=== PATIENT | female | born 1950 | race Caucasian/White ===

== ENCOUNTER 2016-08-08 13:10 | Inpatient (IN) | payer MEDICARE, OTHER ==
--- NOTE | ~2016-08-08 | CN ---
Consultation Report [facility] [address] [facility] [place]. [address] NAME: JOAN MILLER : 54 STATUS : ADM IN [facility]#: [id number] AGE: 66 ADM/REG DATE : 08/08/16 MR#: [id number] REPORT SERV DATE: 08/10/16 DICTATED BY: DATE: REPORT STATUS : Draft TRANSCRIBED BY: MODL DATE: 08/09/16 CONSULTATION DATE OF CONSULTATION: 08/09/2016 CHIEF COMPLAINT/REASON FOR CONSULTATION: Abnormal cardiac stress test. PRIMARY FERMENTER: Rigo Stephenson M.D. HISTORY OF PRESENT ILLNESS: Mrs. Miller is a 66-year-old female with a known history of end stage renal disease, who is also being worked up for chest pain and shortness of breath on an outpatient basis. She had a PET myocardial perfusion stress test on 07/27/2016, which was an intermediate risk stress and demonstrated apical and lateral ischemia. The patient was scheduled for an outpatient cardiac catheterization on 08/10/2016. In the interim, the patient fell and had left hip pain, so she came to the hospital and was found not to have a hip fracture, but she continued to be quite dyspneic and was found to have a CO2 as high as 77 and she was placed on BiPAP and had additional dialysis with 1.7 L fluid removal on top of the 4.5 L she had already had during the day. She is resting comfortably on a nasal cannula. The patient refuses to use BiPAP, she states that it is like torture for her. PAST MEDICAL HISTORY: 1. Chronic left bundle-branch block. 2. End-stage renal disease, on hemodialysis, dialyzing three times per week. 3. Chronic shortness of breath. 4. Chronic hypoxic respiratory failure. 5. Hypertension. 6. Hyperlipidemia. 7. Diabetes mellitus. 8. Obstructive sleep apnea. 9. Morbid obesity. SOCIAL HISTORY: The patient is a former smoker. She does not use alcohol or extracurricular drugs. FAMILY HISTORY: Noncontributory. ALLERGIES: 1. OXYCODONE. 2. SULFA. MEDICATIONS: Current inpatient medications include: 1. Aspirin 162 mg p.o. daily. 2. Calcium carbonate. 3. Lasix 80 mg on nondialysis days. 4. Sensipar. Consultation Report [facility] [address] [place]. [address] NAME: JOAN MILLER : 54 STATUS : ADM IN PAT#: [id number] AGE: 66 ADM/REG DATE : 08/08/16 MR#: [id number] REPORT SERV DATE: 08/10/16 DICTATED BY: DATE: REPORT STATUS : Draft TRANSCRIBED BY: MODL DATE: 08/09/16 5. Pepcid. 6. Neurontin. 7. Heparin for DVT prophylaxis. 8. Novolin. 9. Solu-Medrol. 10.Nephrocaps. 11.Protonix. 12.Renvela. 13.Sodium bicarbonate. REVIEW OF SYSTEMS: All systems were reviewed and are negative, except for as dictated in the HPI. PHYSICAL EXAMINATION: VITAL SIGNS: The patient is afebrile with a temperature of 98.2, blood pressure is 162/52 on norepinephrine 11 mcg/kg, pulse ranged between 94 and 100 beats per minute, respirations 17, oxygen saturations range between 98% on 5 L nasal cannula to the high 80s when the patient is asleep. GENERAL: Mrs. Miller is an ill-appearing 66-year-old female. She is resting comfortably, in no distress. NECK: No jugular venous distention. I could not appreciate carotid bruits. HEART: Tachycardic. Normal S1 and S2. I could not appreciate murmurs, rubs, or gallops. LUNGS: There were inspiratory and expiratory crackles in all lung baig. ABDOMEN: Obese and nontender. I could not appreciate edema in the abdominal pannus. EXTREMITIES: I could not appreciate femoral bruits or palpate femoral pulses due to the patient's body habitus. The right wrist has dual blood supply via Tal test. There is no lower extremity edema. NEUROLOGIC: The patient awakens easily. I could not appreciate focal neurologic deficits. DATA: Procalcitonin 0.47. Sodium 142, potassium 5, BUN 18, creatinine 3.5. BNP is 529. AST 36, ALT 24. ABG showed a pH of 7.25, a pCO2 of 62, a PO2 of 70. Hemoglobin 11.4, hematocrit 38.3, platelet count 224. A chest x-ray performed demonstrated moderate-to- severe pulmonary venous hypertension. EKG on admission demonstrated a left bundle-branch block. The patient had sinus tachycardia. The patient has a known left bundle-branch block. IMPRESSION REPORT AND PLAN: 1. Acute on chronic respiratory failure. 2. End-stage renal disease, on hemodialysis. 3. Abnormal PET stress test with apical and lateral ischemia. 4. Chronic left bundle-branch block. 5. Hypertension. 6. Hyperlipidemia. 7. Diabetes mellitus. 8. Obstructive sleep apnea. Consultation Report [address] [place]. [address] NAME: JOAN MILLER : 54 STATUS : ADM IN [facility]#: [id number] AGE: 66 ADM/REG DATE : 08/08/16 MR#: [id number] REPORT SERV DATE: 08/10/16 DICTATED BY: DATE: REPORT STATUS : Draft TRANSCRIBED BY: MODL DATE: 08/09/16 9. Morbid obesity. RECOMMENDATIONS: 1. Would check lipid panel. 2. Add high-intensity statin. 3. Add back the patient's beta-juan carlos. 4. Would wean norepinephrine. 5. Would recommend cardiac catheterization to evaluate for obstructive coronary artery disease contributing to her symptoms when her respiratory status stabilizes. It has been my pleasure to participate in her care. [facility]/MODL Juanita Steiner M.D. / [id number] CC: MD Carlos Connolly M.D. Van Stephen Monroe Jr., M.D.
--- NOTE | ~2016-08-08 | DS ---
Discharge Summary [facility] [address] [place]. [address] NAME: JOAN BURNS : 54 STATUS : DIS IN PAT#: [id number] AGE: 66 ADM/REG DATE : 08/08/16 MR#: [id number] REPORT SERV DATE: 09/01/16 DICTATED BY: REY RENO DATE: 08/31/16 REPORT STATUS : Draft TRANSCRIBED BY: ESTEVAN DATE: 08/31/16 Data Collection from hospitalization DISCHARGE DIAGNOSES: 1. Status post acute/chronic respiratory failure. 2. Unstable angina status post drug-eluting stent-ostial/proximal obtuse marginal. 3. Ejection fraction 40%. 4. End-stage renal disease. 5. Hypotension. 6. Type 2 diabetes mellitus. 7. Chronic left bundle-branch block. 8. Hypertension. 9. Obstructive sleep apnea. 10.Morbid obesity. 11.Former smoker. CONSULTATIONS: Dr. Jomar Adkins. Dr. Juanita Steiner. Dr. Iván Flaherty. PROCEDURES PERFORMED: 1. Cardiac catheterization and percutaneous coronary intervention, 08/11/2016. 2. CT scan of the pelvis without contrast, 08/14/2016. DISCHARGE MEDICATIONS: Aspirin 162 mg daily; Lipitor 40 mg at bedtime; Tums 2000 mg with meals; Coreg 3.125 mg twice a day; Sensipar 30 mg at bedtime; Plavix 75 mg daily; Neurontin 100 mg at bedtime; heparin 5000 units subcutaneously every eight hours; NovoLog injection insulin as instructed; Novolin 70/30 20 units subcutaneously before breakfast and supper; Dialyvite one tablet daily; Protonix 40 mg before breakfast; sodium bicarbonate 650 mg twice a day; Renvela 3200 mg with meals and 1600 mg with snacks; ProAmatine 10 mg on Tuesdays and as instructed and 5 mg on Wednesday, Wednesday, Wednesday, and Wednesday as instructed; ProAmatine 5 mg on Tuesdays, , and Saturdays as instructed; Brovana 15 mcg via inhaler twice a day as instructed; Pulmicort 1 mg via inhaler twice a day; DuoNeb 3 mL via inhaler every four hours while awake; Tylenol 650 mg orally or rectally as instructed; Mylanta 30 mL every four hours as needed; Norvasc 5 mg as needed; Tessalon 100 mg three times a day as needed; WelChol 1875 mg as needed; Lomotil 2.5 mg three times a day as needed; glucose tablets three as instructed; nitroglycerin 0.4 mg sublingually every five minutes as needed and as instructed; Zofran 4 mg orally or sublingually every four hours as needed; MiraLAX powder one packet daily as needed; Renvela 1600 mg as needed, Ultram 50 mg twice a day as needed, DuoNeb 3 mL via inhaler every four hours as needed, Phenergan 25 mg every four hours as needed, Sensipar 30 mg at bedtime. CONDITION AT DISCHARGE: Stable. DISPOSITION: The patient was discharged to [facility] on an 1800-calorie cardiac diet with activities as instructed. HOSPITAL COURSE: This is a 66-year-old female, who undergoes hemodialysis for end-stage renal disease on Tuesdays, , and Saturdays. She dialyzes through a left upper extremity AV fistula and dialyzed on the day of this admission. She has a history of Discharge Summary [address] [address] NAME: JOAN BURNS : 54 STATUS : DIS IN PAT#: [id number] AGE: 66 ADM/REG DATE : 08/08/16 MR#: [id number] REPORT SERV DATE: 09/01/16 DICTATED BY: REY RENO DATE: 08/31/16 REPORT STATUS : Draft TRANSCRIBED BY: ESTEVAN DATE: 08/31/16 possible COPD and obstructive sleep apnea with intermittent use of CPAP. She is morbidly obese. She has diabetes and hypertension. She was in the emergency room overnight after a fall and left hip pain. A CT scan of the hip did not show any fracture of the hip and she was released to dialysis. After dialysis, she continued to be dyspneic and returned to the emergency room, where she had hypercapnic respiratory distress with pCO2 as high as 77. She was placed on BiPAP and admitted to the ICU. She did have additional dialysis that evening at my request with an ultrafiltration on admission of 1.7 L on top of 4.5 L from earlier on the day of this admission. Her breathing was "never good." She was not having chest pain, but had been ill over the past week with a nonproductive cough, dyspnea, sore throat, and a runny nose. She was admitted to the hospital at this time for further evaluation and treatment. Upon admission, chest x-ray showed increased pulmonary edema. The patient was placed in the ICU on BiPAP support. Solu-Medrol was started. She was dialyzed for additional ultrafiltration. She had a mildly elevated procalcitonin and very mildly elevated troponin without chest pain. We were not suspicious for acute coronary syndrome at this time. Repeat troponin was going to be obtained. Her antihypertensives were held as well as Lopid. A PICC line was placed. She was seen by Dr. Jomar Adkins regarding hypercapnic respiratory insufficiency, on BiPAP. The patient is not on bronchodilator medication nor she on supplemental oxygen at home. She does have a history of obstructive sleep apnea of unclear severity. Thyroid functions were going to be obtained. Cortisol level was going to be checked. Sliding scale insulin was ordered. Protonix was going to be given for history of reflux. DuoNeb would be given as well as Pulmicort and Brovana. It was felt that the patient should undergo cardiac catheterization. Cortisol level was going to be checked. Sliding scale insulin was started. Following day, she was seen by Dr. Juanita Steiner regarding abnormal cardiac stress test. She had a past myocardial perfusion stress test on 07/27/2016, which revealed intermediate risk stress and demonstrated apical and lateral ischemia. The patient had a fall and had left hip pain. She was found not to have a hip fracture. She is being quite dyspneic. She was resting comfortably at this time on nasal cannula. She refused to use BiPAP. She said it was like torture for her. EKG on admission had demonstrated left bundle-branch block. The patient had sinus tachycardia. She does have a known left bundle-branch block. Lipid panel was going to be checked. We were going to add high-intensity statin. We were also going to add back the patient's beta- juan carlos. Norepinephrine was going to be weaned. On the , she seemed to be feeling better. Her dyspnea had decreased. She had no chest pain. She remained in a normal sinus rhythm. On 08/11/2016, she had no chest pain. Her dyspnea continued to decrease. Hemodialysis therapy was performed. She was taken to the cardiac laboratory scientist, where she underwent the above mentioned procedure by Dr. Alfredo Jewell. She tolerated this well and there were no complications. Next day, telemetry revealed no arrhythmia. She did complain of back and hip pain. She said this was what bothers her most. Aspirin was continued at a decreased dose. On the , she was seen by Dr. Iván Flaherty regarding left hip pain. Her current white count was 11,000. She was lethargic, but arousable. She denies any history of chronic hip or low back pain. She said the pain was mostly in the region of her sciatic and lateral hip. A CT scan was going to be repeated to rule out the possibility of development of significant hematoma or iliopsoas hematoma, which would explain the Discharge Summary [address] [address] NAME: JOAN BURNS : 54 STATUS : DIS IN PAT#: [id number] AGE: 66 ADM/REG DATE : 08/08/16 MR#: [id number] REPORT SERV DATE: 09/01/16 DICTATED BY: REY RENO DATE: 08/31/16 REPORT STATUS : Draft TRANSCRIBED BY: MODL DATE: 08/31/16 continuation of her pain. There is no indication for hip aspiration at this point. She had no clinical evidence of intrapelvic abscess. CT scan of the pelvis without contrast was performed. On 08/15/2016, she was evaluated by Physical Therapy. CT scan of the pelvis without contrast had shown non-distracted greater trochanter fracture of the left hip. On 08/16/2016, she seemed to be breathing better. Midodrine had been increased. Hemodialysis therapy continued. On 08/18/2016, her shortness of breath was better. She still had a cough. Echocardiogram was performed. Over the next couple of days, she continued to do well. She was in a normal sinus rhythm. Discharge planning was performed. She still complained of hip pain. On 08/20/2016, her cough had improved. She was alert and cooperative. Discharge instructions were given. Due to her improved and stable condition, she was discharged to [facility] with the above-stated instructions. Information collected by: Palmira Foy I submit the above information as my discharge summary. TG/MODLina Rey Reno M.D. / [id number] CC: MD Carlos Connolly M.D. William Hartley, M.D. [facility] Rowena Steiner M.D.
--- NOTE | ~2016-08-08 | CN ---
Consultation Report [facility] [address] [place]. [address] NAME: JOAN MILLER : 54 STATUS : ADM IN PAT#: [id number] AGE: 66 ADM/REG DATE : 08/08/16 MR#: [id number] REPORT SERV DATE: 08/13/16 DICTATED BY: IVÁN FLAHERTY DATE: 08/13/16 REPORT STATUS : Draft TRANSCRIBED BY: MODL DATE: 08/13/16 CONSULTATION DATE OF CONSULTATION: 08/13/2016 REASON FOR CONSULTATION: Left hip pain. HISTORY OF PRESENT ILLNESS: Ms Miller is a 66-year-old female, who fell last Wednesday. She was evaluated at [facility] for a cardiac workup as well as evaluation of her left hip pain. She had x-rays and CT scan of the left hip which were negative for fracture. She has gone on to have completion of her cardiac workup and stet placement. I have now been asked to see her for further evaluation of her left hip. She continues to complain of severe left hip pain with any range of motion. She has not been ambulatory since the time of the fall. She has had no recent fever or chills. Her current white count is 11,000. The patient is lethargic, but arousable. She denies any history of chronic hip for low back pain. She locates her pain mostly to the region of her left sciatic and lateral hip. PHYSICAL EXAMINATION: GENERAL: I could not elicit any reproduction of her pain with AP or lateral compression of her pelvis. She complains of severe pain with any attempted passive hip range of motion. She refuses active hip range of motion. She has no pain with forceful axial loading of her left lower extremity. I could not elicit any significant thigh tenderness. There is no palpable fluctuance or visible hematoma. She has normal sciatic nerve sensory motor function. I could not palpate pedal pulses. IMAGING: X-rays and CT scan of her left hip from 08/08/2016 show no evidence of fracture or other hip abnormality. IMPRESSION: Left hip contusion. I recommend Ms Miller to have her CT scan repeated to rule out the possibility of development of a significant hematoma or iliopsoas hematoma which would explain the continuation of her pain. I did not see any indication for hip aspiration at this point. She has no clinical evidence of intrapelvic abscess. We will follow up after the repeat CT is completed. Thanks for the consultation. YORDAN/ESTEVAN Iván Consultation Report [place] [place] [address] [place]. [address] NAME: JOAN MILLER : 54 STATUS : ADM IN PAT#: [id number] AGE: 66 ADM/REG DATE : 08/08/16 MR#: [id number] REPORT SERV DATE: 08/13/16 DICTATED BY: IVÁN FLAHERTY DATE: 08/13/16 REPORT STATUS : Draft TRANSCRIBED BY: ESTEVAN DATE: 08/13/16 Matilde Flaherty / [id number] CC: Juan Jose Kim MD
--- NOTE | ~2016-08-08 | CN ---
Consultation Report [facility] [address] [place]. [address] NAME: JOAN MILLER : 54 STATUS : ADM IN PAT#: [id number] AGE: 66 ADM/REG DATE : 08/08/16 MR#: [id number] REPORT SERV DATE: 08/08/16 DICTATED BY: SHAWNA ADKINS IV DATE: 08/08/16 REPORT STATUS : Draft TRANSCRIBED BY: ESTEVAN DATE: 08/08/16 CRITICAL CARE CONSULT NOTE DATE OF CONSULTATION: 08/08/2016 REASON FOR REQUEST: Hypercapnic respiratory insufficiency, on BiPAP. HISTORY OF PRESENT ILLNESS: History is obtained from the records and from the patient. Ms. Miller is a 66-year-old female with a history of hypertension, diabetes mellitus, morbid obesity, obstructive sleep apnea, noncompliant with CPAP, elevated cholesterol, end- stage renal disease, on dialysis, past tobacco dependency, and possible coronary artery disease, scheduled for cardiac catheterization on Wednesday, who presents with increased shortness of breath, wheezing, and hypoxemia. The patient was showering last night and fell injuring her left hip. She had a radiograph obtained which failed to demonstrate a fracture. She continued to have increased pain in the region but additionally had increased shortness of breath. She said this has happened over the last several days associated with increased wheezing. She had ankle edema, though no swelling of her legs. She had an abbreviated dialysis today and they sent her over to the ER for further evaluation. She was quite hypoxemic on presentation though that has improved with initiation of BiPAP. She was hypercapnic as well. The patient is not on bronchodilator medication nor is she on supplemental oxygen at home. She has intermittent cough without fevers, chills, sweats, hemoptysis, or purulent sputum production. She did have a scratchy throat and no other symptoms of a respiratory infection. The patient has a history of obstructive sleep apnea of unclear severity. She was placed on CPAP which she thinks is a pressure setting of 13, though is noncompliant with CPAP therapy. Her reports snoring, witnessed apneic episodes, and the patient complains of nonrestorative sleep and sedentary hypersomnolence. PULMONARY HISTORY: Remarkable for no history of childhood asthma or known adult obstructive lung disease. She has had pneumonia in the past. She has a [id number] smoking history, having quit 20 years ago. 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 She is reportedly up to date on both seasonal influenza vaccine and Pneumovax. PAST MEDICAL HISTORY: 1. Hypertension. 2. Diabetes mellitus. 3. Morbid obesity. 4. Obstructive sleep apnea, noncompliant with CPAP. 5. Elevated cholesterol. 6. End-stage renal disease, on dialysis. 7. Past tobacco dependency. 8. Questionable coronary artery disease. Consultation Report [facility] [address] [place]. [address] NAME: JOAN MILLER : 54 STATUS : ADM IN PAT#: [id number] AGE: 66 ADM/REG DATE : 08/08/16 MR#: [id number] REPORT SERV DATE: 08/08/16 DICTATED BY: SHAWNA ADKINS IV DATE: 08/08/16 REPORT STATUS : Draft TRANSCRIBED BY: ESTEVAN DATE: 08/08/16 SURGERIES: 1. Vascular graft to her left arm for dialysis. 2. on two occasions. 3. Laparoscopic cholecystectomy. 4. Bilateral cataract surgery. ALLERGIES: LISTED ARE SULFA DRUGS WHICH HAPPENED IN CHILDHOOD. SHE IS INTOLERANT OF BOTH HYDRO AND OXYCODONE. OUTPATIENT MEDICATIONS: Include Norvasc 10 mg daily, Tums 2000 mg with meals, Sensipar 30 mg at bedtime, Welchol 1875 mg p.r.n. loose stools, Lomotil p.r.n., Cardura 4 mg at bedtime, Lasix 80 mg twice a day, Neurontin 100 mg at bedtime, Lopid 600 mg daily, hydralazine 50 mg q.8 h. p.r.n., 70/30 insulin 36 units twice a day, Prinivil 20 mg daily, Lopressor 25 mg twice a day, Zofran p.r.n., Phenergan p.r.n., Zantac 300 mg at bedtime, Renvela 1600 mg with snacks, and bicarb daily. SOCIAL HISTORY: Remarkable for the previous tobacco use as above. There is no alcohol or illicit drug use. She is and has three children, one of whom has passed from leukemia. FAMILY HISTORY: Remarkable for a father with COPD, mother with diabetes and hypertension. REVIEW OF SYSTEMS: 14-systems reviewed. Pertinent positives noted above. PHYSICAL EXAMINATION: GENERAL: This is a morbidly obese, elderly female, on BiPAP, currently in no distress. VITAL SIGNS: Saturations are 100% on 50% FiO2, respiratory rate is 18, temperature 98.2, pulse is 73, and blood pressure is 91/44. HEENT: The patient is normocephalic, atraumatic. Extraocular movements are intact. Pupils react to light. Sclerae and conjunctivae normal. She has a BiPAP mask in place. She has multiple missing teeth with gingival disease and a Mallampati 4 airway with narrowing of the posterior pharyngeal space. NECK: Short, it is supple without any palpable lymphadenopathy or thyromegaly. CHEST: The patient has markedly decreased breath sounds symmetrically. There are some bibasilar inspiratory crackles. There is a prolonged expiratory phase with expiratory wheezes. CARDIOVASCULAR: Jugular venous pulsations are difficult to elicit secondary to body habitus. She has 1+ carotid upstrokes. No obvious bruit. She has a distant regular S1, S2 with a 2/6 systolic murmur at the right upper sternal border. No clear S3 is noted. Peripheral pulses are diminished. ABDOMEN: Morbidly obese. Soft. There are hypoactive bowel sounds. There is no palpable hepatosplenomegaly or masses. Surgical scars are noted. EXTREMITIES: Demonstrate tenderness over the left hip with no discrete abnormality. She Consultation Report [address] [place]. [address] NAME: JOAN MILLER : 54 STATUS : ADM IN [facility]#: [id number] AGE: 66 ADM/REG DATE : 08/08/16 MR#: [id number] REPORT SERV DATE: 08/08/16 DICTATED BY: SHAWNA ADKINS IV DATE: 08/08/16 REPORT STATUS : Draft TRANSCRIBED BY: MODL DATE: 08/08/16 has trace ankle edema. There are some chronic venous stasis changes. There is no cyanosis, clubbing, or palpable cords. NEUROLOGIC: The patient does have some decreased sensation in a stocking distribution. Strength is grossly 5- out of 5 and symmetric. LABORATORY DATA: Chest x-ray demonstrates what appeared to be some perihilar vascular fullness. She has a prominent cardiac silhouette with some minimal basilar atelectasis. Blood cultures are currently pending. Procalcitonin level is 0.57. Most recent blood gas pH of 7.30, pCO2 of 77, pO2 of 140. Lactate is 0.09. CBC: Hemoglobin 10.9, hematocrit 35.3, platelet count 167,000, and white blood cell count is 5.6. She has macrocytic cells. There are no bands and 71 segs. Chemistry: Sodium is 138, potassium 3.8, chloride 98, bicarbonate 28, BUN 15, creatinine 3.55, glucose of 126. Alkaline phosphatase is 227, otherwise, unremarkable. ASSESSMENT AND PLAN: 1. Respiratory. The patient likely has a component of chronic obstructive pulmonary disease exacerbation. Solu-Medrol will be given 40 mg twice a day, nebulizer will be given with DuoNeb q.4 h. while awake and q.4 h. as needed. Pulmicort 1 mg and Brovana unit dose will be given twice a day. Oxygen titration to maintain saturation in the 90% to 94% range. Chest x-ray will be obtained tomorrow as well as a blood gas. 2. Cardiovascular. Troponin level will be added to blood in the labs, repeated in 8 hours, and tomorrow morning. Aspirin will be given 325 mg as a single dose and 162 mg daily. Heparin if she has additional pain. EKG will be obtained tomorrow. Plan cardiac catheterization on Wednesday. If the vascular tech wishes to continue Levophed, it will be given as needed for low blood pressure. BNP will be added to blood in the lab. 3. Infectious Disease. Flu swab will be obtained, though not classic symptoms. I see no indication for empiric antibiotics at this time, though will be followed. 4. Endocrinologic. Thyroid functions will be obtained. Cortisol level will be obtained prior to the initiation of Solu-Medrol. Insulin sliding scale has been ordered. 5. Renal. Dialysis per Nephrology. 6. Hematologic. B12 and folate will be obtained with macrocytic parameters. Heparin will be given subcu for deep vein thrombosis prophylaxis. 7. Neurologic. Multivitamin given daily. 8. Gastrointestinal. Head of bed at 30 to 45 degrees. Protonix will be given with a history of reflux. Thank you for consulting us. We will follow the patient with you. NEDA/ESTEVAN Shawna Adkins IV, M.D. Consultation Report [place] [id number] [facility] [address] [place] [address] NAME: JOAN MILLER : 54 STATUS : ADM IN PAT#: [id number] AGE: 66 ADM/REG DATE : 08/08/16 MR#: [id number] REPORT SERV DATE: 08/08/16 DICTATED BY: SHAWNA ADKINS IV DATE: 08/08/16 REPORT STATUS : Draft TRANSCRIBED BY: ESTEVAN DATE: 08/08/16 / [id number] CC: Carlos George M.D.
--- NOTE | ~2016-08-08 | HP ---
History And Physical [place] [id number] [facility] [place]. [address] NAME: JOAN MILLER : 54 STATUS : ADM IN [facility]#: [id number] AGE: 66 ADM/REG DATE : 08/08/16 MR#: [id number] REPORT SERV DATE: 08/08/16 DICTATED BY: KARY MAHMOOD DATE: 08/08/16 REPORT STATUS : Draft TRANSCRIBED BY: ESTEVAN DATE: 08/08/16 DATE OF ADMISSION: 08/08/2016 CHIEF COMPLAINT: Shortness of breath and ESRD. HISTORY OF PRESENT ILLNESS: Mrs. Miller is a 66-year-old, white female, on hemodialysis for ESRD on a Wednesday, , Wednesday schedule at [facility]. She dialyzes through a left upper extremity AV fistula and dialyzed earlier today. She has a past history of possible COPD, obstructive sleep apnea with intermittent use of CPAP, morbid obesity, diabetes, and hypertension, and was in the emergency room overnight after a fall with left hip pain. CT of hip did not show any fracture of the hip and she was released to dialysis. After dialysis, she continued to be dyspneic and returned to the emergency room where she had hypercapnic respiratory distress with a pCO2 as high as 77. She was placed on BiPAP and admitted to the ICU. She did have additional dialysis this evening at my request with an ultrafiltration of admission 1.7 L on top of the 4.5 L from earlier today. Her breathing is "never good." She is not having chest pain, but has been ill over the past week with a nonproductive cough, dyspnea, sore throat, and runny nose. PAST MEDICAL HISTORY: As detailed in the HPI. HOME MEDICATIONS: Include amlodipine 10 mg daily, Dialyvite, Tums, Sensipar 30 mg daily, diazepam as needed, doxazosin 4 mg daily, Lasix 80 mg b.i.d., gabapentin 100 mg at night, gemfibrozil 600 mg daily, hydralazine 50 mg t.i.d., NPH 36 units b.i.d., lisinopril 20 mg daily, metoprolol 25 mg b.i.d., Phenergan as needed, ranitidine 300 mg at night, Sevelamer four tablets with meals, sodium bicarbonate 650 mg b.i.d. ALLERGIES: SHE IS ALLERGIC TO OXYCONTIN, HYDROCODONE, AND SULFA. FAMILY HISTORY: Negative for renal disease. SOCIAL HISTORY: The patient is . She quit smoking 20 years ago. REVIEW OF SYSTEMS: As detailed in the HPI. PHYSICAL EXAMINATION: VITAL SIGNS: Temperature is 99 with pulse of 72, blood pressure 92/53, respirations of 18. GENERAL: She is somewhat anxious white female, in no overt distress. She is speaking in short sentences on BiPAP and communicating appropriately. HEENT: Sclerae anicteric. NECK: She has a thick neck. CARDIOVASCULAR: S1, S2. Regular rate and rhythm without murmurs, rubs, or gallops. LUNGS: Fairly clear to auscultation without wheezes, crackles, or rubs. ABDOMEN: She is morbidly obese. Abdomen is soft and nontender. No definite hepatosplenomegaly. EXTREMITIES: Left upper extremity AV fistula is with an appropriate bruit, and she has some History And Physical [address] [address] NAME: JOAN MILLER : 54 STATUS : ADM IN [facility]#: [id number] AGE: 66 ADM/REG DATE : 08/08/16 MR#: [id number] REPORT SERV DATE: 08/08/16 DICTATED BY: KARY MAHMOOD DATE: 08/08/16 REPORT STATUS : Draft TRANSCRIBED BY: ESTEVAN DATE: 08/08/16 trace peripheral edema. LABORATORY DATA: Her labs include a white count of 5.6, hemoglobin 10.9, platelets are 167. Her procalcitonin is 0.57. Sodium 138, potassium 3.8, chloride 98, bicarb 28, lactate 0.9, BUN 15, creatinine 3.15 with a calcium of 8.2, magnesium 1.8, phosphorus 3.4, albumin 3.1. LFTs within normal limits. Troponin 0.07. Vitamin B12 is 1065 with a folate of 26. TSH 0.5. ABG 7.3/77/140/37 with a chest x-ray showing increased pulmonary edema. ASSESSMENT AND PLAN: 1. Shortness of breath, chronic obstructive pulmonary disease exacerbation. Dr. Adkins consulted the patient now in the ICU, on BiPAP support, and he has started Solu-Medrol. His care is very much appreciated. She does also have BiPAP support, and I have dialyzed her for additional ultrafiltration. She is to have repeat ABG and chest x-ray in the morning. 2. End-stage renal disease, dialyzed twice today and AV fistula has appropriate bruit. 3. Hypotension. She has mildly elevated procalcitonin and a very mildly elevated troponin without chest pain. I am not suspicious for an acute coronary syndrome. The EKG to my read has a sinus rhythm and no ischemic changes, and I would repeat the troponin but would not start heparin drip at this point. I have held all of her antihypertensives as well as her Lopid. PICC line was placed in case any further pressor-type medications were necessary and this should be reasonable for lab draws as well. Left arm is to be preserved for dialysis without any blood pressure checks or draws. 4. Diabetes, on insulin. 5. Obesity. 6. The patient admitted to Nephrology. MAGALY/ESTEVAN Kary Mahmood MD / [id number] CC: MD Carlos Connolly M.D.
[~2016-08-08 13:10] MED LIST: ALKA SELTZER PO; ANUSOL HC SUPP1 SUPP PR; APRES10B PO; APRES50 PO; ARANESP25 IV; ASA5GR PO; CALCIUM CARBONATE; CALTRAT600 PO; CARDU4 PO; CARDURA1 MG PO; CAT1 PO; CATAPRES3 TOP; DIALYVITE PO; DIALYVITE800 MG PO; DILT-XR240 MG PO; DSS; FERRLECIT IV; FLAG500TAB PO; FOLIC PO; HECTOROL PO; HUMULIN SC; INSNOV7030 SC; IRON325 MG PO; L40 PO; L80 PO; LEVAQUIN5T PO; LEVEMIR SC; LOM PO; LOP25 PO; LOP50 PO; LOPID6 PO; NEUR100 PO; NORV10 PO; PR25 PO; PRIN10 PO; PRIN20 PO; RENVELA800 MG PO; SENSIPAR30 M1 PO; SEVE800T PO; SODBICAR10 PO; TUMSROLL PO; VITAMIN D1000 UNI1 PO; WELCHOL 625 MG625 MG PO; WELCHOL625 MG PO; ZANTAC150 MG PO; ZANTAC300 MG PO; ZOFRAN ODT4 MG SL
[2016-08-08 13:34] LABS: BE (BASE EXCESS) 3.1 MEQ/L (0 +/- 2.5); HCO3 (ACTUAL BICARBONATE) 30.7 MEQ/L (23-27); INSTRUMENT SERIAL # 8087; PCO2 (CO2 TENSION) 63 MMHG (35-45); PO2 (O2 TENSION) 87 MMHG (79-93); pH 7.31 (7.37-7.43)
[2016-08-08 13:35] LABS: ALLENS TEST Pos; CARBOXYHEMOGLOBIN 1.6 % (0-3); DEVICE NRB; HEMOBLOGIN CONTENT 11.3 G/DL (12-16); METHEMOGLOBIN 0.1 % (0-3); O2 CONTENT 15.1 VOL% (18-24); OPERATOR ID 14947; SAMPLE Arterial
[2016-08-08 13:54] LABS: BASOPHILS 1.8 %; EOSINOPHILS ABSOLUTE 0.17 10/3/uL (0.0-0.53); ER CBC TAT 0 Hrs 13 Mins; HEMATOCRIT 35.3 % (36.0-48.0); HEMOGLOBIN 10.9 g/dL (12.0-16.0); LYMPHOCYTES 18.4 %; LYMPHOCYTES ABSOLUTE 1.03 10/3/uL (0.67-4.30); MEAN CORPUS HGB CONC 30.9 g/dL (32.0-36.0); MEAN CORPUSCULAR HEMOGLOB 32.7 pg (26.0-34.0); MONOCYTES 16.8 %; MONOCYTES ABSOLUTE 0.94 10/3/uL (0.21-1.20); NEUTROPHILS ABSOLUTE 3.24 10/3/uL (2.02-8.40); PLATELET COUNT 167 10/3/uL (150-400); RBC DISTRIBUTION WIDTH 16.7 % (12.0-16.0); RED CELL COUNT 3.33 10/6/uL (4.0-5.6); WHITE BLOOD CELLS 5.6 10/3/uL (4.5-10.5)
[2016-08-08 13:55] LABS: IMMATURE GRANULOCYTES ABSOLUTE 0.11 10/3/uL (0.0-0.11); MANUAL DIFF NO %
[2016-08-08 13:58] LABS: PARTIAL THROMBO TIME 25.3 SEC (22.5-37.2); PROTIME (NOT ORD) 13.5 SEC (12.0-14.5)
[2016-08-08 14:05] LABS: A/G RATIO 0.7 (0.7-1.9); ALBUMIN 3.1 G/DL (3.5-5.0); CALCIUM, SERUM 8.2 MG/DL (8.5-10.4); CHLORIDE, SERUM 98 MMOL/L (96-112); CO2 (CARBON DIOXIDE) 28 MMOL/L (24-34); GLOBULIN 4.2 G/DL (2.5-4.1); POTASSIUM, SERUM 3.8 MMOL/L (3.5-5.3); SGOT(AST) 36 U/L (5-40); SGPT(ALT) 24 U/L (5-65); SODIUM, SERUM 138 MMOL/L (135-148); TOTAL BILIRUBIN 0.5 MG/DL (0-1.2); TOTAL PROTEIN 7.3 G/DL (6.0-8.5)
[2016-08-08 14:08] LABS: ALKALINE PHOSPHATASE 227 U/L (45-117); BUN (BLOOD UREA NITROGEN) 15 MG/DL (6-23); CREATININE 3.15 MG/DL (0.55-1.02); GFR AFRICAN AMERICAN 17 ML/MIN (>=60); GFR NON AFRICAN AMERICAN 15 ML/MIN (>=60); GLUCOSE, SERUM 126 MG/DL (60-99)
[2016-08-08 14:14] LABS: EOSINOPHILS 2 %; EOSINOPHILS ABSOLUTE (CALC) 0.11 10/3/uL (0.0-0.53); ER DIFF TAT 0 Hrs 33 Mins; LYMPHOCYTES 14 %; LYMPHOCYTES ABSOLUTE (CALC) 0.78 10/3/uL (0.67-4.30); MONOCYTES 13 %; MONOCYTES ABSOLUTE (CALC) 0.73 10/3/uL (0.21-1.20); NEUTROPHILS ABSOLUTE (CALC) 3.98 10/3/uL (2.02-8.40); PLATELET ESTIMATE ADQ (ADEQUATE); SEGMENTED NEUTROPHIL (0) 71 %; TOTAL NUCLEATED CELLS 100
[2016-08-08 14:20] LABS: LACTATE 0.9 MMOL/L (0.3-2.4)
[2016-08-08 15:32] LABS: ALLENS TEST Pos; BE (BASE EXCESS) 8.7 MEQ/L (0 +/- 2.5); CARBOXYHEMOGLOBIN 1.1 % (0-3); HCO3 (ACTUAL BICARBONATE) 37.3 MEQ/L (23-27); HEMOBLOGIN CONTENT 11.1 G/DL (12-16); INSTRUMENT SERIAL # 8087; METHEMOGLOBIN 0.3 % (0-3); O2 CONTENT 15.5 VOL% (18-24); PCO2 (CO2 TENSION) 77 MMHG (35-45); PO2 (O2 TENSION) 140 MMHG (79-93); SAMPLE Arterial
[2016-08-08 18:58] LABS: FREE T4 1.07 NG/DL (0.76-1.46)
[2016-08-08 19:19] LABS: PHOSPHORUS, SERUM 3.4 MG/DL (2.5-4.5); TROPONIN I 0.07 NG/ML (<0.05); ULTRASENSITIVE TSH 0.517 MCIU/ML (0.358-3.740)
[2016-08-09 01:15] LABS: INFLUENZA A SCREEN NEGATIVE (NEGATIVE); INFLUENZA B SCREEN NEGATIVE (NEGATIVE)
[2016-08-09 04:05] LABS: ALLENS TEST Pos; BE (BASE EXCESS) -1.3 MEQ/L (0 +/- 2.5); BIPAP 17/7 cm.H2O; CARBOXYHEMOGLOBIN 1.4 % (0-3); HCO3 (ACTUAL BICARBONATE) 26.8 MEQ/L (23-27); HEMOBLOGIN CONTENT 11.5 G/DL (12-16); INSTRUMENT SERIAL # 8083; METHEMOGLOBIN 0.2 % (0-3); O2 CONTENT 14.9 VOL% (18-24); OPERATOR ID 16503; PCO2 (CO2 TENSION) 62 MMHG (35-45); PO2 (O2 TENSION) 70 MMHG (79-93); SAMPLE Arterial; pH 7.25 (7.37-7.43)
[2016-08-09 05:04] LABS: BASOPHILS 0.4 %; BASOPHILS ABSOLUTE 0.03 10/3/uL (0.0-0.16); EOSINOPHILS 0.4 %; EOSINOPHILS ABSOLUTE 0.03 10/3/uL (0.0-0.53); HEMATOCRIT 38.3 % (36.0-48.0); HEMOGLOBIN 11.4 g/dL (12.0-16.0); IMMATURE GRANULOCYTES 2.5 %; IMMATURE GRANULOCYTES ABSOLUTE 0.17 10/3/uL (0.0-0.11); LYMPHOCYTES 6.9 %; LYMPHOCYTES ABSOLUTE 0.47 10/3/uL (0.67-4.30); MEAN CORPUS HGB CONC 29.8 g/dL (32.0-36.0); MEAN CORPUSCULAR HEMOGLOB 32.1 pg (26.0-34.0); MEAN CORPUSCULAR VOLUME 107.9 fL (80-100); MEAN PLATELET VOLUME 11.2 fL (9.2-13.0); MONOCYTES 4.2 %; MONOCYTES ABSOLUTE 0.29 10/3/uL (0.21-1.20); NEUTROPHILS 85.6 %; NEUTROPHILS ABSOLUTE 5.86 10/3/uL (2.02-8.40); RBC DISTRIBUTION WIDTH 16.8 % (12.0-16.0); RED CELL COUNT 3.55 10/6/uL (4.0-5.6); WHITE BLOOD CELLS 6.9 10/3/uL (4.5-10.5)
[2016-08-09 05:06] LABS: MANUAL DIFF NO %; PLATELET COUNT 224 10/3/uL (150-400)
[2016-08-09 05:21] LABS: BUN (BLOOD UREA NITROGEN) 18 MG/DL (6-23); CALCIUM, SERUM 8.6 MG/DL (8.5-10.4); CHLORIDE, SERUM 102 MMOL/L (96-112); GFR AFRICAN AMERICAN 15 ML/MIN (>=60); GFR NON AFRICAN AMERICAN 13 ML/MIN (>=60); SODIUM, SERUM 142 MMOL/L (135-148)
[2016-08-09 05:26] LABS: CO2 (CARBON DIOXIDE) 23 MMOL/L (24-34); GLUCOSE, SERUM 243 MG/DL (60-99); TROPONIN I 0.07 NG/ML (<0.05)
[2016-08-09 06:01] LABS: PROCALCITONIN 0.47 ng/mL (<0.5)
[2016-08-10 04:25] LABS: HEMOGLOBIN 10.6 g/dL (12.0-16.0); MEAN CORPUSCULAR HEMOGLOB 33.1 pg (26.0-34.0); MEAN CORPUSCULAR VOLUME 105.3 fL (80-100); MEAN PLATELET VOLUME 10.4 fL (9.2-13.0); PLATELET COUNT 222 10/3/uL (150-400); RBC DISTRIBUTION WIDTH 16.2 % (12.0-16.0); WHITE BLOOD CELLS 9.5 10/3/uL (4.5-10.5)
[2016-08-10 04:26] LABS: HEMATOCRIT 33.7 % (36.0-48.0); MANUAL DIFF YES %; MEAN CORPUS HGB CONC 31.5 g/dL (32.0-36.0)
[2016-08-10 04:45] LABS: CALCIUM, SERUM 8.8 MG/DL (8.5-10.4); CHLORIDE, SERUM 100 MMOL/L (96-112); CO2 (CARBON DIOXIDE) 26 MMOL/L (24-34); GLUCOSE, SERUM 233 MG/DL (60-99); HDL CHOLESTEROL 61 MG/DL (> 49); POTASSIUM, SERUM 4.6 MMOL/L (3.5-5.3); SODIUM, SERUM 138 MMOL/L (135-148)
[2016-08-10 04:47] LABS: BUN (BLOOD UREA NITROGEN) 44 MG/DL (6-23); CHOL/HDL RATIO(NOT ORDER) 2.8 (0-5); CHOLESTEROL 168 MG/DL (< 200); CREATININE 5.73 MG/DL (0.55-1.02); GFR AFRICAN AMERICAN 8 ML/MIN (>=60); GFR NON AFRICAN AMERICAN 7 ML/MIN (>=60); LDL CHOLESTEROL 80 MG/DL (< 130); NON-HDL CHOLESTEROL 107 MG/DL (< 160); TRIGLYCERIDE 135 MG/DL (< 150)
[2016-08-10 04:50] LABS: SEGMENTED NEUTROPHIL (0) 79 %; TOTAL NUCLEATED CELLS 100
[2016-08-10 04:51] LABS: BAND NEUTROPHILS 7 %; LYMPHOCYTES 7 %; LYMPHOCYTES ABSOLUTE (CALC) 0.67 10/3/uL (0.67-4.30); MACROCYTES 1+ (5-10/OIF) (0-5/OIF); MONOCYTES 7 %; MONOCYTES ABSOLUTE (CALC) 0.67 10/3/uL (0.21-1.20); NEUTROPHILS ABSOLUTE (CALC) 8.17 10/3/uL (2.02-8.40)
[2016-08-10 04:52] LABS: PLATELET ESTIMATE ADQ (ADEQUATE)
[2016-08-11 04:35] LABS: BASOPHILS 0.1 %; BASOPHILS ABSOLUTE 0.01 10/3/uL (0.0-0.16); EOSINOPHILS 0.2 %; EOSINOPHILS ABSOLUTE 0.02 10/3/uL (0.0-0.53); HEMATOCRIT 32.2 % (36.0-48.0); HEMOGLOBIN 10.2 g/dL (12.0-16.0); IMMATURE GRANULOCYTES 2.2 %; IMMATURE GRANULOCYTES ABSOLUTE 0.25 10/3/uL (0.0-0.11); LYMPHOCYTES ABSOLUTE 0.78 10/3/uL (0.67-4.30); MEAN CORPUS HGB CONC 31.7 g/dL (32.0-36.0); MEAN CORPUSCULAR HEMOGLOB 32.5 pg (26.0-34.0); MEAN CORPUSCULAR VOLUME 102.5 fL (80-100); MEAN PLATELET VOLUME 10.9 fL (9.2-13.0); MONOCYTES 8.4 %; MONOCYTES ABSOLUTE 0.94 10/3/uL (0.21-1.20); NEUTROPHILS 82.1 %; NEUTROPHILS ABSOLUTE 9.19 10/3/uL (2.02-8.40); PLATELET COUNT 224 10/3/uL (150-400); RBC DISTRIBUTION WIDTH 16.2 % (12.0-16.0); RED CELL COUNT 3.14 10/6/uL (4.0-5.6); WHITE BLOOD CELLS 11.2 10/3/uL (4.5-10.5)
[2016-08-11 04:37] LABS: MANUAL DIFF NO %
[2016-08-11 04:39] LABS: INTERNATIONAL NORMAL RATI 1.2 UNITS (-); PROTIME (NOT ORD) 14.6 SEC (12.0-14.5)
[2016-08-11 04:49] LABS: ALBUMIN 2.9 G/DL (3.5-5.0); CHLORIDE, SERUM 95 MMOL/L (96-112); CO2 (CARBON DIOXIDE) 27 MMOL/L (24-34); PHOSPHORUS, SERUM 3.4 MG/DL (2.5-4.5); POTASSIUM, SERUM 5.1 MMOL/L (3.5-5.3); SODIUM, SERUM 134 MMOL/L (135-148)
[2016-08-11 04:54] LABS: BUN (BLOOD UREA NITROGEN) 70 MG/DL (6-23); GFR AFRICAN AMERICAN 7 ML/MIN (>=60); GFR NON AFRICAN AMERICAN 6 ML/MIN (>=60); GLUCOSE, SERUM 104 MG/DL (60-99)
[2016-08-12 05:29] LABS: ALBUMIN 2.9 G/DL (3.5-5.0); CALCIUM, SERUM 8.3 MG/DL (8.5-10.4); CHLORIDE, SERUM 102 MMOL/L (96-112); CO2 (CARBON DIOXIDE) 27 MMOL/L (24-34); PHOSPHORUS, SERUM 3.6 MG/DL (2.5-4.5); POTASSIUM, SERUM 4.7 MMOL/L (3.5-5.3); SODIUM, SERUM 137 MMOL/L (135-148)
[2016-08-12 05:30] LABS: BUN (BLOOD UREA NITROGEN) 54 MG/DL (6-23); CREATININE 5.48 MG/DL (0.55-1.02); GFR AFRICAN AMERICAN 9 ML/MIN (>=60); GFR NON AFRICAN AMERICAN 8 ML/MIN (>=60); GLUCOSE, SERUM 83 MG/DL (60-99)
[2016-08-13 06:41] LABS: HEMOGLOBIN 9.7 g/dL (12.0-16.0); MEAN CORPUS HGB CONC 32.3 g/dL (32.0-36.0); MEAN PLATELET VOLUME 10.6 fL (9.2-13.0); PLATELET COUNT 213 10/3/uL (150-400); RBC DISTRIBUTION WIDTH 16.2 % (12.0-16.0); RED CELL COUNT 2.94 10/6/uL (4.0-5.6)
[2016-08-13 06:44] LABS: MANUAL DIFF YES %
[2016-08-13 06:53] LABS: ALBUMIN 2.9 G/DL (3.5-5.0); BUN (BLOOD UREA NITROGEN) 79 MG/DL (6-23); CHLORIDE, SERUM 98 MMOL/L (96-112); CO2 (CARBON DIOXIDE) 23 MMOL/L (24-34); CREATININE 7.04 MG/DL (0.55-1.02); GFR AFRICAN AMERICAN 7 ML/MIN (>=60); GFR NON AFRICAN AMERICAN 6 ML/MIN (>=60); GLUCOSE, SERUM 81 MG/DL (60-99); PHOSPHORUS, SERUM 4.5 MG/DL (2.5-4.5); POTASSIUM, SERUM 5.2 MMOL/L (3.5-5.3); SODIUM, SERUM 135 MMOL/L (135-148)
[2016-08-13 07:48] LABS: BAND NEUTROPHILS 6 %; EOSINOPHILS 1 %; LYMPHOCYTES 23 %; MACROCYTES 1+ (5-10/OIF) (0-5/OIF); MONOCYTES 9 %; PLATELET ESTIMATE ADQ (ADEQUATE); SEGMENTED NEUTROPHIL (0) 61 %; TOTAL NUCLEATED CELLS 100
[2016-08-14 05:37] LABS: HEMATOCRIT 31.3 % (36.0-48.0); MANUAL DIFF YES %; MEAN CORPUS HGB CONC 31.9 g/dL (32.0-36.0); MEAN CORPUSCULAR HEMOGLOB 32.4 pg (26.0-34.0); MEAN CORPUSCULAR VOLUME 101.3 fL (80-100); PLATELET COUNT 229 10/3/uL (150-400); RBC DISTRIBUTION WIDTH 16.3 % (12.0-16.0); RED CELL COUNT 3.09 10/6/uL (4.0-5.6); WHITE BLOOD CELLS 11.3 10/3/uL (4.5-10.5)
[2016-08-14 05:54] LABS: ALBUMIN 2.9 G/DL (3.5-5.0); BUN (BLOOD UREA NITROGEN) 50 MG/DL (6-23); CALCIUM, SERUM 8.4 MG/DL (8.5-10.4); CHLORIDE, SERUM 100 MMOL/L (96-112); CO2 (CARBON DIOXIDE) 26 MMOL/L (24-34); CREATININE 5.26 MG/DL (0.55-1.02); GFR AFRICAN AMERICAN 9 ML/MIN (>=60); GFR NON AFRICAN AMERICAN 8 ML/MIN (>=60); GLUCOSE, SERUM 103 MG/DL (60-99); PHOSPHORUS, SERUM 3.9 MG/DL (2.5-4.5); POTASSIUM, SERUM 5.3 MMOL/L (3.5-5.3); SODIUM, SERUM 140 MMOL/L (135-148)
[2016-08-14 05:55] LABS: BAND NEUTROPHILS 1 %; EOSINOPHILS 4 %; EOSINOPHILS ABSOLUTE (CALC) 0.45 10/3/uL (0.0-0.53); IMMATURE GRANS ABSOLUTE (CALC) 0.11 10/3/uL (0.0-0.11); LYMPHOCYTES 12 %; LYMPHOCYTES ABSOLUTE (CALC) 1.36 10/3/uL (0.67-4.30); METAMYELOCYTES 1 %; MONOCYTES 2 %; NEUTROPHILS ABSOLUTE (CALC) 9.38 10/3/uL (2.02-8.40); SEGMENTED NEUTROPHIL (0) 80 %; TOTAL NUCLEATED CELLS 100
[2016-08-14 05:56] LABS: MACROCYTES 1+ (5-10/OIF) (0-5/OIF); PLATELET ESTIMATE ADQ (ADEQUATE)
[2016-08-15 12:53] LABS: HEMOGLOBIN 9.3 g/dL (12.0-16.0); MEAN CORPUS HGB CONC 32.1 g/dL (32.0-36.0); MEAN CORPUSCULAR HEMOGLOB 32.7 pg (26.0-34.0); MEAN CORPUSCULAR VOLUME 102.1 fL (80-100); MEAN PLATELET VOLUME 10.6 fL (9.2-13.0); PLATELET COUNT 246 10/3/uL (150-400); RBC DISTRIBUTION WIDTH 16.2 % (12.0-16.0); RED CELL COUNT 2.84 10/6/uL (4.0-5.6); WHITE BLOOD CELLS 11.2 10/3/uL (4.5-10.5)
[2016-08-15 12:54] LABS: MANUAL DIFF YES %
[2016-08-15 13:06] LABS: BUN (BLOOD UREA NITROGEN) 66 MG/DL (6-23); CALCIUM, SERUM 7.9 MG/DL (8.5-10.4); CHLORIDE, SERUM 102 MMOL/L (96-112); CO2 (CARBON DIOXIDE) 27 MMOL/L (24-34); CREATININE 5.87 MG/DL (0.55-1.02); GFR AFRICAN AMERICAN 8 ML/MIN (>=60); GFR NON AFRICAN AMERICAN 7 ML/MIN (>=60); GLUCOSE, SERUM 137 MG/DL (60-99); PHOSPHORUS, SERUM 3.9 MG/DL (2.5-4.5); POTASSIUM, SERUM 5.2 MMOL/L (3.5-5.3); SODIUM, SERUM 139 MMOL/L (135-148)
[2016-08-15 13:20] LABS: BAND NEUTROPHILS 7 %; EOSINOPHILS 1 %; EOSINOPHILS ABSOLUTE (CALC) 0.11 10/3/uL (0.0-0.53); IMMATURE GRANS ABSOLUTE (CALC) 0.67 10/3/uL (0.0-0.11); LYMPHOCYTES 6 %; LYMPHOCYTES ABSOLUTE (CALC) 0.67 10/3/uL (0.67-4.30); MACROCYTES 1+ (5-10/OIF) (0-5/OIF); METAMYELOCYTES 5 %; MONOCYTES 9 %; MONOCYTES ABSOLUTE (CALC) 1.01 10/3/uL (0.21-1.20); MYELOCYTES 1 %; NEUTROPHILS ABSOLUTE (CALC) 8.74 10/3/uL (2.02-8.40); PLATELET ESTIMATE ADQ (ADEQUATE); SEGMENTED NEUTROPHIL (0) 71 %; TOTAL NUCLEATED CELLS 100
[2016-08-15 13:21] LABS: POLYCHROMASIA 1+ (2-5/OIF) (0-1/OIF)
[2016-08-16 06:35] LABS: ALBUMIN 2.8 G/DL (3.5-5.0); CALCIUM, SERUM 8.3 MG/DL (8.5-10.4); CHLORIDE, SERUM 104 MMOL/L (96-112); CO2 (CARBON DIOXIDE) 29 MMOL/L (24-34); GFR AFRICAN AMERICAN 10 ML/MIN (>=60); GFR NON AFRICAN AMERICAN 9 ML/MIN (>=60); GLUCOSE, SERUM 131 MG/DL (60-99); PHOSPHORUS, SERUM 3.7 MG/DL (2.5-4.5); POTASSIUM, SERUM 5.4 MMOL/L (3.5-5.3); SODIUM, SERUM 140 MMOL/L (135-148)
[2016-08-16 06:36] LABS: BUN (BLOOD UREA NITROGEN) 49 MG/DL (6-23); CREATININE 4.92 MG/DL (0.55-1.02)
[2016-08-17 05:50] LABS: HEMATOCRIT 29.6 % (36.0-48.0); HEMOGLOBIN 9.5 g/dL (12.0-16.0); MEAN CORPUS HGB CONC 32.1 g/dL (32.0-36.0); MEAN CORPUSCULAR HEMOGLOB 33.1 pg (26.0-34.0); MEAN CORPUSCULAR VOLUME 103.1 fL (80-100); MEAN PLATELET VOLUME 10.8 fL (9.2-13.0); PLATELET COUNT 231 10/3/uL (150-400); RBC DISTRIBUTION WIDTH 16.6 % (12.0-16.0); RED CELL COUNT 2.87 10/6/uL (4.0-5.6); WHITE BLOOD CELLS 11.2 10/3/uL (4.5-10.5)
[2016-08-17 05:51] LABS: ALBUMIN 2.8 G/DL (3.5-5.0); CALCIUM, SERUM 8.3 MG/DL (8.5-10.4); CHLORIDE, SERUM 99 MMOL/L (96-112); CO2 (CARBON DIOXIDE) 27 MMOL/L (24-34); GLUCOSE, SERUM 117 MG/DL (60-99); POTASSIUM, SERUM 5.6 MMOL/L (3.5-5.3); SODIUM, SERUM 136 MMOL/L (135-148)
[2016-08-17 05:54] LABS: BUN (BLOOD UREA NITROGEN) 72 MG/DL (6-23); CREATININE 6.27 MG/DL (0.55-1.02); GFR AFRICAN AMERICAN 7 ML/MIN (>=60); GFR NON AFRICAN AMERICAN 6 ML/MIN (>=60); MANUAL DIFF YES %; PHOSPHORUS, SERUM 4.9 MG/DL (2.5-4.5)
[2016-08-17 06:52] LABS: ANISOCYTOSIS 1+ (5-10/OIF) (0-5/OIF); BAND NEUTROPHILS 5 %; EOSINOPHILS 2 %; EOSINOPHILS ABSOLUTE (CALC) 0.22 10/3/uL (0.0-0.53); IMMATURE GRANS ABSOLUTE (CALC) 0.45 10/3/uL (0.0-0.11); LYMPHOCYTES 14 %; LYMPHOCYTES ABSOLUTE (CALC) 1.57 10/3/uL (0.67-4.30); MACROCYTES 1+ (5-10/OIF) (0-5/OIF); METAMYELOCYTES 4 %; MONOCYTES 5 %; MONOCYTES ABSOLUTE (CALC) 0.56 10/3/uL (0.21-1.20); PLATELET ESTIMATE ADQ (ADEQUATE); SEGMENTED NEUTROPHIL (0) 70 %; TOTAL NUCLEATED CELLS 100
[2016-08-18 06:46] LABS: CALCIUM, SERUM 8.7 MG/DL (8.5-10.4); CHLORIDE, SERUM 101 MMOL/L (96-112); CO2 (CARBON DIOXIDE) 29 MMOL/L (24-34); PHOSPHORUS, SERUM 4.2 MG/DL (2.5-4.5); POTASSIUM, SERUM 4.7 MMOL/L (3.5-5.3); SODIUM, SERUM 141 MMOL/L (135-148)
[2016-08-18 06:47] LABS: BUN (BLOOD UREA NITROGEN) 44 MG/DL (6-23); CREATININE 4.93 MG/DL (0.55-1.02); GFR AFRICAN AMERICAN 10 ML/MIN (>=60); GFR NON AFRICAN AMERICAN 9 ML/MIN (>=60); GLUCOSE, SERUM 60 MG/DL (60-99)
[2016-08-19 08:30] LABS: BASOPHILS 0.4 %; BASOPHILS ABSOLUTE 0.04 10/3/uL (0.0-0.16); EOSINOPHILS 2.6 %; EOSINOPHILS ABSOLUTE 0.24 10/3/uL (0.0-0.53); HEMATOCRIT 27.8 % (36.0-48.0); HEMOGLOBIN 8.7 g/dL (12.0-16.0); IMMATURE GRANULOCYTES 4.7 %; IMMATURE GRANULOCYTES ABSOLUTE 0.43 10/3/uL (0.0-0.11); LYMPHOCYTES ABSOLUTE 1.19 10/3/uL (0.67-4.30); MEAN CORPUS HGB CONC 31.3 g/dL (32.0-36.0); MEAN CORPUSCULAR HEMOGLOB 32.5 pg (26.0-34.0); MEAN CORPUSCULAR VOLUME 103.7 fL (80-100); MEAN PLATELET VOLUME 10.8 fL (9.2-13.0); MONOCYTES 16.6 %; MONOCYTES ABSOLUTE 1.52 10/3/uL (0.21-1.20); NEUTROPHILS 62.7 %; NEUTROPHILS ABSOLUTE 5.71 10/3/uL (2.02-8.40); PLATELET COUNT 247 10/3/uL (150-400); RBC DISTRIBUTION WIDTH 16.4 % (12.0-16.0); RED CELL COUNT 2.68 10/6/uL (4.0-5.6); WHITE BLOOD CELLS 9.1 10/3/uL (4.5-10.5)
[2016-08-19 08:32] LABS: MANUAL DIFF NO %
[2016-08-19 08:40] LABS: ALBUMIN 2.9 G/DL (3.5-5.0); BUN (BLOOD UREA NITROGEN) 68 MG/DL (6-23); CALCIUM, SERUM 8.8 MG/DL (8.5-10.4); CHLORIDE, SERUM 99 MMOL/L (96-112); CO2 (CARBON DIOXIDE) 29 MMOL/L (24-34); CREATININE 6.51 MG/DL (0.55-1.02); GFR AFRICAN AMERICAN 7 ML/MIN (>=60); GFR NON AFRICAN AMERICAN 6 ML/MIN (>=60); GLUCOSE, SERUM 168 MG/DL (60-99); PHOSPHORUS, SERUM 5.8 MG/DL (2.5-4.5); POTASSIUM, SERUM 5.2 MMOL/L (3.5-5.3); SODIUM, SERUM 139 MMOL/L (135-148)
== END 2016-08-20 15:46 | DRG 246 ==
LOC: ER 13:10 → MIC 17:37 → SSU2 08-11 11:15 → 2SO 08-12 18:20
PROVIDERS: Emergency Medicine; Internal Medicine Critical Care Medicine; Internal Medicine Nephrology; Nurse Practitioner; Registered Nurse
PROC: 02HV33Z Insertion of Infusion Device into Superior Vena Cava, Percutaneous Approach (ICD-10-PCS; 2016-08-08)
PROC: 5A1D60Z (ICD-10-PCS; 2016-08-08)
PROC: 30263N1 (ICD-10-PCS; 2016-08-08)
PROC: 4A02X4A Measurement of Cardiac Electrical Activity, Guidance, External Approach (ICD-10-PCS; 2016-08-09)
PROC: 027034Z Dilation of Coronary Artery, One Artery with Drug-eluting Intraluminal Device, Percutaneous Approach (ICD-10-PCS; principal; 2016-08-11)
PROC: B2111ZZ Fluoroscopy of Multiple Coronary Arteries using Low Osmolar Contrast (ICD-10-PCS; 2016-08-11)
PROC: B2151ZZ Fluoroscopy of Left Heart using Low Osmolar Contrast (ICD-10-PCS; 2016-08-11)
DX: I25.10 Atherosclerotic heart disease of native coronary artery without angina pectoris (principal); J96.21 Acute and chronic respiratory failure with hypoxia; N18.6 End stage renal disease; E11.22 Type 2 diabetes mellitus with diabetic chronic kidney disease; I12.0 Hypertensive chronic kidney disease with stage 5 chronic kidney disease or end stage renal disease; S70.02XA Contusion of left hip, initial encounter; D63.1 Anemia in chronic kidney disease; J96.22 Acute and chronic respiratory failure with hypercapnia; J44.1 Chronic obstructive pulmonary disease with (acute) exacerbation; Z68.43 Body mass index [BMI] 50.0-59.9, adult; E87.70 Fluid overload, unspecified; E66.01 Morbid (severe) obesity due to excess calories; E78.2 Mixed hyperlipidemia; I44.7 Left bundle-branch block, unspecified; W19.XXXA Unspecified fall, initial encounter; K21.9 Gastro-esophageal reflux disease without esophagitis; G47.33 Obstructive sleep apnea (adult) (pediatric); E78.00 Pure hypercholesterolemia, unspecified; Z79.4 Long term (current) use of insulin; Z99.2 Dependence on renal dialysis; Z87.891 Personal history of nicotine dependence; Z88.2 Allergy status to sulfonamides; Z88.5 Allergy status to narcotic agent; Z79.82 Long term (current) use of aspirin; Z79.899 Other long term (current) drug therapy; Z90.49 Acquired absence of other specified parts of digestive tract; Z98.890 Other specified postprocedural states
CPT/HCPCS: 36415; 36569; 36600; 71010; 72170; 72192; 73502-LT; 73700-LT; 80048; 80053; 80061; 80069; 81001; 82533; 82607; 82746; 82805; 82962; 83605; 83735; 83880; 84100; 84132; 84145; 84439; 84443; 84484; 85025; 85347; 85610; 85730; 86850; 86900; 86901; 87040; 87641; 87804; 93005; 93458; 94640; 94660; 96374; 96375; 96376; 97110-GP; 97163-GP; 97530-GP; 99285; 99291; A9270-GY; C1725; C1751; C1769; C1874; C1887; C1894; C8929; C9113; C9600; G0257; G8978-CM-GP; G8979-CL-GP; J0583; J2250; J2360; J2405; J2920; J3010; P9047; Q9957; Q9967